=== PATIENT | male | born 1990 | race Two or more races ===

== ENCOUNTER 2017-11-13 10:59 | Emergency (ER) | payer SELFPAY ==
--- NOTE | 2017-11-13 11:06 | EDM.PDOC ---
ED HPI GENERAL MEDICAL PROBLEM - General Chief Complaint: Allergic Reaction Stated Complaint: allergic reaction Time Seen by Provider: 11/13/17 11:05 Source of Information: Reports: Patient History Limitations: Reports: No Limitations - History of Present Illness INITIAL COMMENTS - FREE TEXT/NARRATIVE: HISTORY AND PHYSICAL: []27-year-old male presents with concerns over shortness of breath and chest discomfort when mowing the grass History of Present Illness: []Admission states that this was a second occurrence of this when he was younger this happened one time Review of Systems: As per history of present illness and below otherwise all systems reviewed and negative. Past medical history: As per history of present illness and as reviewed below otherwise noncontributory. Surgical history: As per history of present illness and as reviewed below otherwise noncontributory. Social history: No reported history of drug or alcohol abuse. Family history: As per history of present illness and as reviewed below otherwise noncontributory. Physical exam: Alert and oriented male answering questions appropriately in full sentences without any shortness of breath vital signs are recognized 96% SaO2 HEENT: Atraumatic, normocehpalic, pupils reactive, negative for conjunctival pallor or scleral icterus, mucous membranes moist, throat clear, neck supple, nontender, trachea midline. Lungs: Clear to auscultation, breath sounds equal bilaterally, chest non tender. Heart: S1S2, regular, negative for clicks, rubs, or JVD. Abdomen: Soft, nondistended, nontender. Negative for masses or hepatossplenmegaly. Negative for costovertebral tenderness. Pelvis: Stable nontender. Genitourinary: Deferred. Rectal: Deferred Extremities: Atraumatic, negative for cords or calf pain. Neurovascular unremarkable. Neuro: Awake, alert, oriented. Cranial nerves II through XII unremarkable. Cerebellum unremarkable. Motor and sensory unremarkable throughout. Exam nonfocal. Patient has improved with the treatments were given here and minor back pain that has been chronic has somewhat relieved with the Toradol that he was giving Diagnostics: [Chest xray Therapeutics: []Medrol IV Toradol IV DuoNeb Zyrtec Impression: []Allergic reaction to the grass Plan: []Home Take Zyrtec daily for the next 2 weeks Albuterol inhaler taken prior to mowing grass Return to the emergency room as directed and discussed Definitive disposition and diagnosis as appropriate pending reevaluation and review of above. Onset: Sudden Duration: Day(s): lower back Pain Score (Numeric/FACES): 6 - Related Data Allergies Allergy/AdvReac Type Severity Reaction Status Date / Time No Known Allergies Allergy Verified 11/13/17 11:06 Home Meds: Home Meds Albuterol Sulfate [Proventil Hfa] 6.7 gm IH 5XDAY PRN #1 hfa.aer.ad 11/13/17 [Rx ] Cetirizine HCl [Zyrtec] 10 mg PO DAILY #15 tablet 11/13/17 [Rx] ED ROS ALLERGIC REACTION - Review of Systems Review Of Systems: ROS reveals no pertinent complaints other than HPI. ED EXAM GENERAL NO PERIP PULSE - Physical Exam Exam: See Below (See dictation) Course - Vital Signs Last Recorded V/S: Last Vital Signs Temp 36.4 C 11/13/17 11:03 Pulse 90 11/13/17 11:03 Resp 20 11/13/17 11:03 BP 138/94 H 11/13/17 11:03 Pulse Ox 94 L 11/13/17 11:03 - Orders/Labs/Meds Orders: Active Orders 24 hr Category Date Time Status RT Aerosol Therapy [RC] ASDIRECTED Care 11/13/17 12:09 Active Chest 2V [CR] Stat Exams 11/13/17 12:32 Ordered Labs: Laboratory Tests 11/13/17 Range/Units 11:10 WBC 7.59 (4.0-11.0) K/uL RBC 4.69 (4.50-5.90) M/uL Hgb 15.2 (13.0-17.0) g/dL Hct 43.1 (38.0-50.0) % MCV 91.9 (80.0-98.0) fL MCH 32.4 H (27.0-32.0) pg MCHC 35.3 (31.0-37.0) g/dL RDW Std Deviation 41.3 (28.0-62.0) fl RDW Coeff of Se 12 (11.0-15.0) % Plt Count 244 (150-400) K/uL MPV 10.70 (7.40-12.00) fL Neut % (Auto) 58.1 (48.0-80.0) % Lymph % (Auto) 25.8 (16.0-40.0) % Union % (Auto) 7.5 (0.0-15.0) % Eos % (Auto) 8.3 H (0.0-7.0) % Baso % (Auto) 0.3 (0.0-1.5) % Neut # (Auto) 4.4 (1.4-5.7) K/uL Lymph # (Auto) 2.0 (0.6-2.4) K/uL Union # (Auto) 0.6 (0.0-0.8) K/uL Eos # (Auto) 0.6 (0.0-0.7) K/uL Baso # (Auto) 0.0 (0.0-0.1) K/uL Nucleated RBC % 0.0 /100WBC Nucleated RBCs # 0 K/uL Meds: Medications Discontinued Medications Generic Name Dose Route Start Last Admin Trade Name Freq PRN Reason Stop Dose Admin Albuterol/Ipratropium 3 ml 11/13/17 12:09 11/13/17 12:16 Duoneb 3.0-0.5 Mg/3 Ml NEB 11/13/17 12:10 3 ml ONETIME ONE Administration Cetirizine HCl 10 mg 11/13/17 12:56 11/13/17 13:03 Zyrtec PO 11/13/17 12:57 10 mg ONETIME ONE Administration Diphenhydramine HCl 50 mg 11/13/17 12:56 11/13/17 13:03 Benadryl IVPUSH 11/13/17 12:57 50 mg ONETIME ONE Administration Ketorolac Tromethamine 30 mg 11/13/17 13:11 11/13/17 13:24 Toradol IVPUSH 11/13/17 13:12 30 mg ONETIME ONE Administration Ketorolac Tromethamine 30 mg 11/13/17 13:11 Toradol IVPUSH 11/13/17 13:12 ONETIME ONE Methylprednisolone Sodium Succinate 125 mg 11/13/17 11:21 11/13/17 11:31 Solu-Medrol IV 11/13/17 11:22 125 mg ONETIME ONE Administration Departure - Departure Time of Disposition: 13:44 Disposition: Home, Self-Care 01 Condition: Good Clinical Impression: Wheezing Allergic reaction Qualifiers: Encounter type: initial encounter Qualified Code(s): T78.40XA - Allergy, unspecified, initial encounter - Discharge Information Prescriptions: Albuterol Sulfate [Proventil Hfa] 6.7 gm IH 5XDAY PRN #1 hfa.aer.ad PRN Reason: Shortness Of Breath Cetirizine HCl [Zyrtec] 10 mg PO DAILY #15 tablet Instructions: Allergies, Adult, [id number], Metered Dose Inhaler (No Spacer Used), How to Use a Metered Dose Inhaler Referrals: PCP,None [Primary Care Provider] - Additional Instructions: The following information is given to patients seen in the emergency department who are being discharged to home. This information is to outline your options for follow-up care. We provide all patients seen in our emergency department with a follow-up referral. The need for follow-up, as well as the timing and circumstances, are variable depending upon the specifics of your emergency department visit. If you don't have a primary care physician on staff, we will provide you with a referral. We always advise you to contact your personal physician following an emergency department visit to inform them of the circumstance of the visit and for follow-up with them and/or the need for any referrals to a consulting specialist. The emergency department will also refer you to a specialist when appropriate. This referral assures that you have the opportunity for followup care with a specialist. All of these measure are taken in an effort to provide you with optimal care, which includes your followup.Take Zyrtec daily for the next 2 weeks Albuterol inhaler taken prior to mowing grass Return to the emergency room as directed and discussed Under all circumstances we always encourage you to contact your private physician who remains a resource for coordinating your care. When calling for followup care, please make the office aware that this follow-up is from your recent emergency room visit. If for any reason you are refused follow-up, please contact the [facility] emergency department at and asked to speak to the emergency department charge nurse. He had no allergic reaction while cutting the grass You were given a steroid while in the emergency department He was given Toradol for your back pain You are also given Zyrtec - My Orders Last 24 Hours: My Active Orders 11/13/17 12:09 RT Aerosol Therapy [RC] ASDIRECTED 11/13/17 12:32 Chest 2V [CR] Stat - Assessment/Plan Last 24 Hours: My Active Orders 11/13/17 12:09 RT Aerosol Therapy [RC] ASDIRECTED 11/13/17 12:32 Chest 2V [CR] Stat
[2017-11-13 11:13] VITALS: BP 138/94
[2017-11-13] MEDS: methylPREDNISolone Sodium Succinate 125 MG/2 ML SDV IV ONE (11:31)
[2017-11-13] MEDS: Albuterol/Ipratropium 3.0-0.5 MG/3 ML Neb Soln NEB ONE (12:16)
[2017-11-13] MEDS: Cetirizine 10 MG Tab PO ONE (13:03)
[2017-11-13] MEDS: diphenhydrAMINE 50 MG/ML SDV IVPUSH ONE (13:03)
[2017-11-13] MEDS ORDERED: Ketorolac 30 MG/ML SDV IVPUSH ONE (13:11)
[2017-11-13] MEDS: Ketorolac 30 MG/ML SDV IVPUSH ONE (13:24)
--- NOTE | 2017-11-13 14:15 | CR ---
PA and lateral chest Clinical history: Chest pain and shortness of breath Comparison: Chest radiograph October 10, 2014. Findings: The costophrenic angles are clear. The cardiomediastinum is normal and the lungs are clear. Impression: Normal chest unchanged
== END 2017-11-13 13:58 | disposition home or self-care (01) ==
LOC: MW.ED 10:59
DX: J30.1 Allergic rhinitis due to pollen (principal); R06.2 Wheezing
CPT/HCPCS: 36415; 71046; 85025; 96374; 96375; 99284; A9270; J1200; J1885; J2930; 99283

== ENCOUNTER 2021-11-07 17:11 | Emergency (ER) | payer SELFPAY ==
[2021-11-07 18:30] VITALS: BP 119/79; PULSE 95
== END 2021-11-07 18:31 | disposition home or self-care (01) ==
LOC: MW.ED 17:11
DX: N48.1 Balanitis (principal)
CPT/HCPCS: 99283

== ENCOUNTER 2022-06-06 08:53 | Emergency (ER) | payer SELFPAY ==
[2022-06-06] MEDS ORDERED: Ondansetron 4 MG/2 ML SDV IVPUSH ONE (09:07)
[2022-06-06] MEDS ORDERED: Sodium Chloride 0.9% 1,000 ML IV ONE (09:07)
[2022-06-06] MEDS ORDERED: Famotidine 20 MG/2 ML SDV IVPUSH ONE (09:07)
[2022-06-06] MEDS ORDERED: Morphine 4 MG/ML Syringe IVPUSH ONE (09:07)
[2022-06-06] MEDS ORDERED: Alum Hydro/Mag Hydro/Simeth XS 15 ML, Lidocaine 2% 5 ML PO ONE ×2 (09:10)
[2022-06-06 10:02] LABS: BLOOD UREA NITROGEN,BUN 19 mg/dL (7.0-18.0); CARBON DIOXIDE,CO2 26.5 mmol/L (21.0-32.0); CHLORIDE,CL 103 mmol/L (98-107); GLUCOSE RANDOM 105 mg/dL (74-106); LIPASE 81 U/L (73-393); POTASSIUM,K 4.2 mmol/L (3.5-5.1); SODIUM,NA 140 mmol/L (136-148)
[2022-06-06 10:11] LABS: ESTIMATED GFR 104 mL/min (>60)
[2022-06-06 10:29] LABS: CORONAVIRUS COVID-19 NAA NEGATIVE (NEGATIVE); INFLUENZA A NAA NEGATIVE (NEGATIVE); INFLUENZA B NAA NEGATIVE (NEGATIVE)
[2022-06-06] MEDS ORDERED: HYDROmorphone 1 MG/ML Syringe IVPUSH ONE (10:33)
[2022-06-06 12:10] VITALS: BP 114/65; PULSE 75
== END 2022-06-06 12:10 | disposition home or self-care (01) ==
LOC: MW.ED 08:53
DX: R07.2 Precordial pain (principal); Z20.822 Contact with and (suspected) exposure to COVID-19
CPT/HCPCS: 0240U; 36415; 71045; 80053; 80307; 83690; 83735; 84484; 85025; 85379; 93005; 96361; 96374; 96375; 99285; A9270; J1170; J2270; J2405; J3490; J7030

== ENCOUNTER 2023-03-14 13:44 | Emergency (ER) | payer SELFPAY ==
[2023-03-14] MEDS ORDERED: Lidocaine 1% 5 ML VIAL INJECT STA (14:49)
[2023-03-14 17:36] VITALS: BP 150/98; PULSE 77
== END 2023-03-14 16:40 | disposition home or self-care (01) ==
LOC: MW.ED 13:44
DX: S01.01XA Laceration without foreign body of scalp, initial encounter (principal); W22.8XXA Striking against or struck by other objects, initial encounter
CPT/HCPCS: 12002; 99282; J3490

== ENCOUNTER 2023-03-31 09:15 | Emergency (ER) | payer SELFPAY ==
[2023-03-31 09:43] VITALS: BP 128/96; PULSE 80
== END 2023-03-31 09:40 | disposition left against medical advice (07) ==
LOC: MW.ED 09:15
DX: Z48.02 Encounter for removal of sutures (principal)
CPT/HCPCS: 99281

== ENCOUNTER 2024-03-10 05:33 | Emergency (ER) | payer SELFPAY ==
[2024-03-10 06:16] LABS: BASOPHILS ABSOLUTE AUTO 0.06 K/uL (0.00-0.20); BASOPHILS PERCENT AUTO 0.6 % (0.0-1.0); EOSINOPHILS ABSOLUTE AUTO 0.58 K/uL (0.00-0.45); EOSINOPHILS PERCENT AUTO 5.6 % (0.0-6.0); HEMATOCRIT 42.6 % (42.0-52.0); HEMOGLOBIN 14.4 g/dL (14.0-18.0); IMMATURE GRAN ABSOLUTE AUTO 0.04 K/uL (0.00-0.05); IMMATURE GRAN PERCENT AUTO 0.4 % (0.0-0.4); LYMPHOCYTES ABSOLUTE AUTO 2.26 K/uL (1.00-4.80); LYMPHOCYTES PERCENT AUTO 21.8 % (24.0-44.0); MEAN CORPUSCULAR HEMOGLOBIN 31.6 pg (28.0-32.0); MEAN CORPUSCULAR HGB CONC 33.8 g/dL (32.0-36.0); MEAN CORPUSCULAR VOLUME 93.4 fL (83.0-99.0); MEAN PLATELET VOLUME 9.7 fL (9.4-12.4); MONOCYTES ABSOLUTE AUTO 0.85 K/uL (0.00-0.80); MONOCYTES PERCENT AUTO 8.2 % (0.0-8.0); NEUTROPHILS ABSOLUTE AUTO 6.58 K/uL (1.80-7.70); NEUTROPHILS PERCENT AUTO 63.4 % (41.0-71.0); PLATELET COUNT,PLT 260 K/uL (150-400); RED BLOOD CELL COUNT 4.56 M/uL (4.52-5.90); WHITE BLOOD CELL COUNT,WBC 10.37 K/uL (3.9-11.3)
[2024-03-10] MEDS: Ketorolac 30 MG/ML SDV IVPUSH ONE (06:22)
[2024-03-10] MEDS: Sodium Chloride 0.9% 1,000 ML IV ONE (06:22)
[2024-03-10] MEDS: Acetaminophen 500 MG Tab PO ONE (06:23)
[2024-03-10] MEDS: Ampicillin/Sulbactam Na 3 GM in Sodium Chloride 0.9% 100 ML IV ONE (06:23)
[2024-03-10] MEDS: Sodium Chloride 0.9% 10 ML Syringe FLUSH PRN (06:23)
[2024-03-10] MEDS: Dexamethasone 4 MG/ML SDV IVPUSH ONE (06:23)
[2024-03-10 06:45] LABS: A/G RATIO 0.9 (0.9-1.6); ALBUMIN 3.6 g/dL (3.4-5.0); BILIRUBIN TOTAL 0.4 mg/dL (0.2-1.0); C-REACTIVE PROTEIN 4.29 mg/dL (<0.3); CALCIUM 8.9 mg/dL (8.5-10.1); CREATININE 0.8 mg/dL (0.8-1.3); EST CRCL DRUG DOSING (CG) 129.44 mL/min; POTASSIUM,K 4.1 mmol/L (3.5-5.1); PROTEIN TOTAL,TP 7.5 g/dL (6.4-8.2)
[2024-03-10 07:02] LABS: CARBON DIOXIDE,CO2 25.8 mmol/L (21.0-32.0)
[2024-03-10] MEDS: Iopamidol 755 Mg/ML 100 ML Bottle IVPUSH ONE (07:37)
[2024-03-10 08:47] VITALS: BP 146/86; PULSE 83
== END 2024-03-10 08:39 | disposition home or self-care (01) ==
LOC: MW.ED 05:33
DX: K02.9 Dental caries, unspecified (principal); Z98.818 Other dental procedure status; Z79.899 Other long term (current) drug therapy
CPT/HCPCS: 36415; 70487; 80053; 85025; 85652; 86140; 96365; 96375; 99284; A9270; J0295; J1100; J1885; J3490; J7030; Q9967

== ENCOUNTER 2024-04-14 08:04 | Emergency (ER) | payer BC ==
[2024-04-14 09:30] VITALS: BP 122/82; PULSE 72
== END 2024-04-14 09:29 | disposition home or self-care (01) ==
LOC: MW.ED 08:04
DX: M25.522 Pain in left elbow (principal); F17.210 Nicotine dependence, cigarettes, uncomplicated; Z75.8 Other problems related to medical facilities and other health care
CPT/HCPCS: 73080-26-LT; 73080-LT; 99282; 99283

== ENCOUNTER 2024-05-06 18:58 | Emergency (ER) | payer BC ==
[2024-05-06 19:09] VITALS: BP 128/78; PULSE 103
[2024-05-06] MEDS ORDERED: Diphtheria,Pertussis(Acell),Tetanus Vaccine 0.5 ML Syringe IM ONE (19:19)
[2024-05-06] MEDS: Lidocaine/Epineph/Tetracaine 3 ML Syringe TOP STA (19:30)
[2024-05-06] MEDS: Lidocaine 1% 5 ML VIAL INJECT STA (20:11)
== END 2024-05-06 22:31 | disposition home or self-care (01) ==
LOC: MW.ED 18:58
DX: S61.217A Laceration without foreign body of left little finger without damage to nail, initial encounter (principal); F17.210 Nicotine dependence, cigarettes, uncomplicated; Z75.8 Other problems related to medical facilities and other health care; W26.0XXA Contact with knife, initial encounter
CPT/HCPCS: 12001; 73130; 99283; A9270; J3490

== ENCOUNTER 2024-07-30 19:41 | Emergency (ER) | payer BC ==
[2024-07-30] MEDS: Iopamidol 755 MG/ML 500 ML Multipack Bottle IVPUSH ONE (22:49)
[2024-07-30 22:53] LABS: BASOPHILS ABSOLUTE AUTO 0.03 K/uL (0.00-0.20); BASOPHILS PERCENT AUTO 0.5 % (0.0-1.0); EOSINOPHILS PERCENT AUTO 3.5 % (0.0-6.0); HEMATOCRIT 41.5 % (42.0-52.0); HEMOGLOBIN 13.7 g/dL (14.0-18.0); IMMATURE GRAN ABSOLUTE AUTO 0.02 K/uL (0.00-0.05); IMMATURE GRAN PERCENT AUTO 0.3 % (0.0-0.4); LYMPHOCYTES ABSOLUTE AUTO 1.95 K/uL (1.00-4.80); LYMPHOCYTES PERCENT AUTO 33.9 % (24.0-44.0); MEAN CORPUSCULAR HEMOGLOBIN 31.1 pg (28.0-32.0); MEAN CORPUSCULAR VOLUME 94.3 fL (83.0-99.0); MEAN PLATELET VOLUME 10.1 fL (9.4-12.4); MONOCYTES ABSOLUTE AUTO 0.73 K/uL (0.00-0.80); MONOCYTES PERCENT AUTO 12.7 % (0.0-8.0); NEUTROPHILS ABSOLUTE AUTO 2.83 K/uL (1.80-7.70); NEUTROPHILS PERCENT AUTO 49.1 % (41.0-71.0); PLATELET COUNT,PLT 232 K/uL (150-400); WHITE BLOOD CELL COUNT,WBC 5.76 K/uL (3.9-11.3)
[2024-07-30 22:53] LABS: APPEARANCE,URINE CLEAR; BILIRUBIN,URINE NEGATIVE (NEGATIVE); COLOR,URINE YELLOW; GLUCOSE,URINE NEGATIVE (NEGATIVE); KETONES,URINE NEGATIVE (NEGATIVE); LEUKOCYTE ESTERASE,URINE NEGATIVE (NEGATIVE); NITRITE,URINE NEGATIVE (NEGATIVE); OCCULT BLOOD,URINE NEGATIVE (NEGATIVE); PH,URINE 5.5 (5.0-8.0); PROTEIN,URINE NEGATIVE (NEGATIVE); UROBILINOGEN,URINE 0.2 EU/dL (<2.0)
[2024-07-30] MEDS: Ketorolac 30 MG/ML SDV IVPUSH ONE (23:00)
[2024-07-30] MEDS: Prochlorperazine 10 MG/2 ML SDV IVPUSH ONE (23:00)
[2024-07-30] MEDS: diphenhydrAMINE 50 MG/ML SDV IVPUSH ONE (23:01)
[2024-07-30] MEDS: Sodium Chloride 0.9% 1,000 ML IV ONE (23:01)
[2024-07-30 23:03] LABS: AMPHETAMINES SCREEN, URINE NEGATIVE (CUTOFF=500); BARBITURATE SCREEN,URINE NEGATIVE (CUTOFF=200); BENZODIAZEPINES SCREEN,URINE NEGATIVE (CUTOFF=150); BUPRENORPHINE SCREEN,URINE NEGATIVE (CUTOFF=10); METHADONE SCREEN, URINE NEGATIVE (CUTOFF=200); METHAMPHETAMINES SCREEN, URINE NEGATIVE (CUTOFF=500); OXYCODONE SCREEN,URINE NEGATIVE (CUT0FF=100); PCP SCREEN,URINE NEGATIVE (CUTOFF=25); THC SCREEN,URINE 20 NG/ML NEGATIVE (CUTOFF=50)
[2024-07-30 23:21] LABS: A/G RATIO 1.1 (0.9-1.6); ALANINE AMINOTRANSFERASE,ALT 69 IU/L (14-63); ALBUMIN 3.8 g/dL (3.4-5.0); ALKALINE PHOSPHATASE 104 U/L (46-116); ASPARTATE AMNIOTRANSFERASE,AST 32 IU/L (15-37); BILIRUBIN TOTAL 0.3 mg/dL (0.2-1.0); BLOOD UREA NITROGEN,BUN 17 mg/dL (7.0-18.0); CALCIUM 8.5 mg/dL (8.5-10.1); CARBON DIOXIDE,CO2 21.5 mmol/L (21.0-32.0); CHLORIDE,CL 105 mmol/L (98-107); CREATININE 0.9 mg/dL (0.8-1.3); ETHANOL BLOOD MEDICAL 43 mg/dL; GLUCOSE RANDOM 92 mg/dL (74-106); LIPASE 28 U/L (16-77); POTASSIUM,K 3.6 mmol/L (3.5-5.1); PROTEIN TOTAL,TP 7.4 g/dL (6.4-8.2); SODIUM,NA 143 mmol/L (136-148)
[2024-07-30 23:28] LABS: ESTIMATED GFR 117 mL/min (>60)
[2024-07-31 00:18] VITALS: BP 111/71; PULSE 71
== END 2024-07-31 00:17 | disposition home or self-care (01) ==
LOC: MW.ED 19:41
DX: R42 Dizziness and giddiness (principal); R51.9 Headache, unspecified; F17.210 Nicotine dependence, cigarettes, uncomplicated; Z75.8 Other problems related to medical facilities and other health care
CPT/HCPCS: 36415; 70450; 70496; 80048; 80076; 80305; 80307; 81003; 83690; 84484; 85025; 93005; 96361; 96374; 96375; 99284; J0780; J1200; J1885; J7030; Q9967